=== PATIENT | female | born 1955 ===

== ENCOUNTER 2018-11-08 09:33 | Inpatient (IN) | payer OTHER ==
[~2018-11-08] VITALS: Ht 160 cm; Wt 59.9 kg
[~2018-11-08 09:33] MED LIST: COZAAR100 MG PO; FOLIC ACID1 MG PO; NIFE60TA3 PO; [UNRECOGNIZED DRUG - OTHER] PO
[2018-11-13] MEDS ORDERED: MAPAP500 MG PO (11:58)
[2018-11-13] MEDS ORDERED: INTESTINEX680 M1 PO (11:58)
== END 2018-11-13 15:38 | disposition home or self-care (01) | DRG 330 ==
LOC: O/R 11-10 06:12 → SURH 11-10 09:23 → SURG 11-10 19:08
PROVIDERS: ADMIT Surgery
PROC: 0DTF4ZZ Resection of Right Large Intestine, Percutaneous Endoscopic Approach (ICD-10-PCS; principal; 2018-11-10 10:15)
DX: K57.32 Diverticulitis of large intestine without perforation or abscess without bleeding (principal); N18.4 Chronic kidney disease, stage 4 (severe); I12.9 Hypertensive chronic kidney disease with stage 1 through stage 4 chronic kidney disease, or unspecified chronic kidney disease